=== PATIENT | female | born 1970 | race Caucasian/White ===

== ENCOUNTER → 2025-02-02 13:26 | Outpatient (REF) | payer SELFPAY | LOC: HWRAD 13:26 | PROVIDERS: ATTENDING PHYSICIAN Family Medicine | DX: E78.00 Pure hypercholesterolemia, unspecified (principal) | CPT/HCPCS: 75571 ==

== ENCOUNTER → 2025-03-01 19:12 | Outpatient (REF) | payer OTHER, SELFPAY | LOC: WDC 19:12 | PROVIDERS: ATTENDING PHYSICIAN Family Medicine | DX: Z12.31 Encounter for screening mammogram for malignant neoplasm of breast (principal) | CPT/HCPCS: 77063; 77067 ==